=== PATIENT | male | born 1965 ===

== ENCOUNTER 2018-10-25 13:08 | Outpatient (CLI) | payer BC | END 2018-10-25 13:09 | disposition home or self-care (01) | LOC: C.RADH 13:08 ==

== ENCOUNTER 2018-11-04 05:41 | Inpatient (IN) | payer BC ==
[2018-11-01 11:25] VITALS: BMI 34.5
[2018-11-04] MEDS ORDERED: Midazolam 2 MG/2 ML VIAL ONE (07:04)
[2018-11-04] MEDS ORDERED: Propofol 10 mg/ml Inj (20 ML) ONE (07:04)
[2018-11-04] MEDS ORDERED: ceFAZolin 1 gm in NS 2 GM/200 ML BAG IVPB ONE (07:30)
[2018-11-04] MEDS ORDERED: metroNIDAZOLE IV 500 mg/100 ml 500 MG/100 ML BAG ONE (07:31)
[2018-11-04] MEDS ORDERED: Bupivacaine HCl 0.5% PF (10 ml) Inj ONE (07:32)
[2018-11-04] MEDS: Lidocaine/Epinephrine 1% 1:100000 10 ML IJ ONE ×2 (08:35→08:38)
[2018-11-04] MEDS: Bupivacaine 0.25% 20 ML INJ IJ ONE ×2 (08:35→08:38)
[2018-11-04] MEDS: Bupivacaine HCl 0.5% PF (10 ml) Inj ONE ×2 (08:54→12:36)
[2018-11-04] MEDS ORDERED: Rocuronium 10 mg/ml (5 ml) ONE (10:43)
[2018-11-04] MEDS ORDERED: BUPIVACAINE 0.125%/0.9% NACL 600 ML IJ ONE (12:00)
[2018-11-04] MEDS ORDERED: Neostigmine 1:1000 (1 mg/ml) Inj ONE (12:07)
[2018-11-04] MEDS ORDERED: Sodium Chloride 0.9% 20 ML IV ONE (12:29)
[2018-11-04] MEDS: Bupivacaine Liposomal Inj 20 ml INFIL ONE ×2 (12:37→12:45)
[2018-11-04] MEDS ORDERED: Morphine 4 MG/ML VIAL ONE (12:54)
[2018-11-04] MEDS ORDERED: HYDROmorphone 0.5 mg/0.5 ml ISec IVP PRN (13:17)
--- NOTE | 2018-11-04 13:19 | PCM.SURG1 ---
Surgeon's Initial Post Op Note - Surgeon's Notes Surgeon: Dr. Murrell Director Of Securities And Real Estate: Dr. Stone PGY3; Tania Gamez Type of Anesthesia: General Endo Pre-Operative Diagnosis: cecal adenocarcinoma Operative Findings: see dictation Post-Operative Diagnosis: same Operation Performed: robot-assisted laparoscopic right nilton-colectomy w/ extra- corporeal anastomsis Specimen/Specimens Removed: right colectomy, transverse colon, small bowel Estimated Blood Loss: EBL {In ML}: 100 Blood Products Given: N/A Drains Used: Syd Post-Op Condition: Good Date of Surgery/Procedure: 11/04/18 Time of Surgery/Procedure: 13:20
[2018-11-04] MEDS: Piperacillin/Tazobact 3.375 GM in Sodium Chloride 100 ML IVPB SCH ×2 (15:08→20:55)
[2018-11-04] MEDS: Lactated Ringer's 1,000 ML IV SCH (22:02)
[2018-11-04] MEDS: Morphine 4 MG/ML VIAL IVP PRN (22:10)
--- NOTE | 2018-11-04 23:31 | OP ---
PROCEDURE DATE: 11/04/2018 PREOPERATIVE DIAGNOSES: 1. Cecal adenocarcinoma. 2. Morbid obesity. POSTOPERATIVE DIAGNOSES: 1. Cecal adenocarcinoma. 2. Morbid obesity. PROCEDURES DONE: 1. Robotic right hemicolectomy. 2. Bilateral On-Q pain catheter pump placement. 3. Robotic small bowel resection, segmental. SURGEON: Celestino Murrell MD ASSISTANTS: CLAYTON Clemens and Thais Stone DO, PGY-3 resident. ANESTHESIA: General endotracheal tube anesthesia. ESTIMATED BLOOD LOSS: Around 100 mL. DRAIN: A 19-Burundian Syd drain was placed in perihepatic area. COMPLICATIONS: None. INTRAOPERATIVE FINDINGS: The patient had a large cecal mass with extensively thickened and fatty omentum. DESCRIPTION OF PROCEDURE: On intraoperative steps, this is a 53-year-old male who was diagnosed with cecal adenocarcinoma. The patient was consented for laparoscopic-assisted robotic right hemicolectomy. The patient was brought to the OR and placed supine on the operating room table. After induction of the anesthesia, the abdomen was prepped and draped in the usual sterile fashion. A left upper quadrant incision was made using the Visiport technique. Peritoneal cavity was entered. Pneumo was created. Another 3-8 mm port was placed in the midline, supraumbilical as well as left lower quadrant, and a 12-mm port was placed in left line. The robot was brought in. Camera arm as well as arm-1 and arm-2 were docked. First, the appendix, cecum and right colon was mobilized. The omentum was mobilized from the transverse colon. The ileum was firmly adhesed to the pelvis, and the ileal mobilization was done. Now, the ileum was resected at the terminal ileum, and the ileal mesentery as well as the ileocecal vessel was divided with vessel sealer. Dissection was continued upto the hepatic flexure. The transverse colon was divided at proximal transverse colon, and mesentery was divided with the vessel sealer. The dissection was carried down deep up to the root of the mesentery to remove all the lymph nodes. After that, the terminal ileum as well as the transverse colon was brought out through the supraumbilical small abdominal incision. The ileum appeared to be extremely narrowed in the length, and the part of the segment of the ileum was dissected. After that, the [id number] colon with a small bowel anastomosis was done. There was a proper hemostasis in each and every part of the procedure. There was a good blood supply. The blood supply was checked before anastomosis as well as after anastomosis. After proper anastomosis, suction irrigation of the whole abdomen was done. A 19-Burundian Syd drain was placed. Bilateral On-Q pain catheter pump was placed, and it was connected to the chamber. The abdominal wound was closed in multiple layers; the fascia with #1 loop PDS as well as 0 Prolene interrupted suture; the subcu with a 2-0 Vicryl and the skin with a 4-0 Monocryl at all the port sites, and dry sterile dressing was applied. The patient tolerated the procedure well. Count of instrument and gauge was correct. There was no apparent complication. The patient was extubated in OR and sent to the postanesthesia care unit in a stable condition. Celestino Murrell MD MTDD
[2018-11-05] MEDS: Piperacillin/Tazobact 3.375 GM in Sodium Chloride 100 ML IVPB SCH ×3 (01:08→13:44)
[2018-11-05] MEDS: Lactated Ringer's 1,000 ML IV SCH ×3 (01:08→06:27)
[2018-11-05] MEDS: Morphine 4 MG/ML VIAL IVP PRN ×2 (05:56→15:42)
[2018-11-05] MEDS ORDERED: Lactated Ringer's 500 ML IV ONE (06:09)
[2018-11-05 07:42] LABS: BASO % 0.3 % (0.0-2.0); EOS % 0.1 % (0.0-4.0); HEMOGLOBIN 9.5 g/dL (12.0-18.0); LYMPH # 1.5 K/uL (1.0-4.3); MEAN CELL VOLUME 74.3 fL (80.0-94.0); MEAN PLATELET VOLUME 7.6 fL (7.2-11.7); MONO # 1.2 K/uL (0.0-0.8); MONO % 9.8 % (0.0-10.0); NEUT # 9.9 K/uL (1.8-7.0); NEUT % 77.8 % (50.0-75.0); RBC 4.11 Mil/uL (4.40-5.90); RED CELL DISTRIBUTION WIDTH 16.7 % (11.5-14.5); WHITE BLOOD COUNT 12.7 K/uL (4.8-10.8)
[2018-11-05 07:45] LABS: BLOOD UREA NITROGEN 15 mg/dL (9-20); CALCIUM 8.3 mg/dl (8.6-10.4); GFR NON-AFRICAN AMERICAN > 60
--- NOTE | 2018-11-05 09:10 | CP.PCM.PN ---
<Tejal Funk - Last Filed: 11/05/18 09:13> Subjective - Date & Time of Evaluation Date of Evaluation: 11/05/18 Time of Evaluation: 07:00 - Subjective Subjective: GENERAL SURGERY PROGRESS NOTE FOR DR. STUART Patient seen and examined at bedside. He reports some milly-incisional pain but pain well controlled. Hasn't been OOB yet. Denies nausea or vomiting. He is using his IS. Had good urine output overnight so Foster was removed. No flatus or BM. Objective - Vital Signs/Intake and Output Vital Signs (last 24 hours): Temp Pulse Resp BP Pulse Ox 98.4 F 77 20 127/74 94 L 11/05/18 08:06 11/05/18 08:06 11/05/18 08:06 11/05/18 08:06 11/05/18 08:06 Intake and Output: 11/05/18 11/05/18 06:59 18:59 Intake Total 2125 Output Total 1700 Balance 425 - Medications Medications: Current Medications Acetaminophen (Tylenol 325mg Tab) 650 mg PO Q4 PRN PRN Reason: Pain, Mild (1-3) BUPIVACAINE 0.125%/0.9% NACL (Bupivacaine-Ns 0.125% On-Q Leak Hunter) 600 mls @ 4 mls/hr IJ ONCE ONE Stop: 11/10/18 17:59 Last Admin: 11/04/18 14:45 Dose: 16 mls Lactated Ringer's (Lactated Ringer's) 1,000 mls @ 125 mls/hr IV .Q8H SE[place]ST[facility]N Last Admin: 11/05/18 06:27 Dose: 125 mls/hr Piperacillin Sod/Tazobactam (Sod 3.375 gm/ Sodium Chloride) 100 mls @ 200 mls/hr IVPB Q6H SE[place]ST[place]N; Protocol Stop: 11/05/18 14:01 Last Admin: 11/05/18 01:08 Dose: 200 mls/hr Morphine Sulfate (Morphine) 4 mg IVP Q4H PRN PRN Reason: Pain, moderate (4-7) Last Admin: 11/05/18 05:56 Dose: 4 mg Ondansetron HCl (Zofran Inj) 4 mg IVP Q4 PRN PRN Reason: Nausea/Vomiting - Labs Labs: 11/05/18 07:08 11/05/18 07:08 - Constitutional Appears: Non-toxic, No Acute Distress - Head Exam Head Exam: ATRAUMATIC, NORMAL INSPECTION - Eye Exam Eye Exam: EOMI, Normal appearance - Respiratory Exam Respiratory Exam: NORMAL BREATHING PATTERN. absent: Respiratory Distress - Cardiovascular Exam Cardiovascular Exam: +S1, +S2 - GI/Abdominal Exam GI & Abdominal Exam: Soft, Tenderness (mild milly-incisional tenderness). absent: Distended, Firm, Guarding, Rigid, Rebound Additional comments: Dressings clean/dry/intact On-Q in place at 4cc/hr NG tube in place with 250cc output since OR Syd drain in place with 20cc serosanguinous output overnight - Neurological Exam Neurological Exam: Alert, Awake, Oriented x3 - Psychiatric Exam Psychiatric exam: Normal Affect, Normal Mood - Skin Skin Exam: Dry, Warm Assessment and Plan - Assessment and Plan (Free Text) Assessment: 53yo M with cecal adenocarcinoma s/p robotic right hemicolectomy POD#1 - Afebrile, VSS - Hgb 9.5 - Void check s/p Foster removal - Continue NPO - Will remove NG tube - Continue syd drain, will monitor output - Lovenox tomorrow - Strongly encouraged IS and ambulation - Discussed plan with Dr. Handy Funk PGY-4 <Celestino Stuart - Last Filed: 11/10/18 21:56> Objective - Vital Signs/Intake and Output Vital Signs (last 24 hours): Temp Pulse Resp BP Pulse Ox 98.1 F 84 20 150/75 96 11/08/18 15:00 11/08/18 15:00 11/08/18 15:00 11/08/18 15:00 11/08/18 15:00 - Labs Labs: 11/08/18 06:45 11/08/18 06:45 Attending/Attestation - Attestation I have personally seen and examined this patient.: Yes I have fully participated in the care of the patient.: Yes I have reviewed all pertinent clinical information, including history, physical exam and plan: Yes Notes (Text): Pt was seen and examined at bedside Agree with above note and assessment Pt has mild distention HB is 9.5 Keep NPO DC foster, DC NT tube SCDs, OOB to walk Hold lovenox due to low Hb Plan d.w pt in detail.
[2018-11-05] MEDS: Potassium Ch 20mEq in D5-1/2NS 1,000 ML IV SCH ×3 (10:54→21:24)
[2018-11-06] MEDS: Potassium Ch 20mEq in D5-1/2NS 1,000 ML IV SCH ×5 (05:04→22:07)
[2018-11-06 08:06] LABS: BASO % 0.2 % (0.0-2.0); HEMOGLOBIN 9.5 g/dL (12.0-18.0); LYMPH % 6.2 % (20.0-40.0); MEAN CELL VOLUME 73.6 fL (80.0-94.0); MEAN CORPUSCULAR HGB CONC 31.3 g/dL (33.0-37.0); MEAN PLATELET VOLUME 7.7 fL (7.2-11.7); MONO # 1.7 K/uL (0.0-0.8); MONO % 10.8 % (0.0-10.0); NEUT # 13.1 K/uL (1.8-7.0); NEUT % 82.8 % (50.0-75.0); NRBC % 0.1 % (0.0-2.0); PLATELET COUNT 372 K/uL (130-400); RBC 4.11 Mil/uL (4.40-5.90); RED CELL DISTRIBUTION WIDTH 16.6 % (11.5-14.5); WHITE BLOOD COUNT 15.9 K/uL (4.8-10.8)
[2018-11-06 08:12] LABS: BLOOD UREA NITROGEN 8 mg/dL (9-20); CALCIUM 8.5 mg/dl (8.6-10.4); GFR NON-AFRICAN AMERICAN > 60
[2018-11-06 10:08] LABS: ANISOCYTOSIS SLIGHT; EOSINOPHIL 1 % (0-4); HYPOCHROMIC SLIGHT; LYMPHOCYTE 6 % (20-40); MONOCYTE 7 % (0-10); NEUTROPHIL 86 % (50-75); PLATELET ESTIMATE NORMAL (NORMAL); POIKILOCYTOSIS SLIGHT; TOTAL CELLS COUNTED 100
[2018-11-06 10:09] LABS: LARGE PLATELETS PRESENT
[2018-11-06] MEDS ORDERED: Budesonide 0.25 mg/2 ml Inhal Susp UD INH ONE (16:15)
--- NOTE | 2018-11-06 16:15 | CP.PCM.PN ---
<BerthaThais - Last Filed: 11/06/18 16:12> Subjective - Date & Time of Evaluation Date of Evaluation: 11/06/18 Time of Evaluation: 10:30 - Subjective Subjective: General Surgery Dr. Murrell Pt seen and examined @bedside. No acute events overnight. pt has no complaints. reports pain well controlled. has been OOB to chair and ambulating hallways. NPO. (-)flatus/BM. Objective - Vital Signs/Intake and Output Vital Signs (last 24 hours): Temp Pulse Resp BP Pulse Ox 98.2 F 86 20 130/81 96 11/06/18 08:41 11/06/18 08:41 11/06/18 08:41 11/06/18 08:41 11/06/18 08:41 Intake and Output: 11/06/18 11/06/18 06:59 18:59 Intake Total 2000 Output Total 120 Balance 1880 - Medications Medications: Current Medications Acetaminophen (Tylenol 325mg Tab) 650 mg PO Q4 PRN PRN Reason: Pain, Mild (1-3) Budesonide (Pulmicort Respules) 0.25 mg INH RQ12 [place] Budesonide (Pulmicort Respules) 0.25 mg INH ONCE ONE Stop: 11/06/18 16:16 Last Admin: 11/06/18 16:06 Dose: 0.25 mg BUPIVACAINE 0.125%/0.9% NACL (Bupivacaine-Ns 0.125% On-Q Stem Cutter) 600 mls @ 4 mls/hr IJ ONCE ONE Stop: 11/10/18 17:59 Last Admin: 11/04/18 14:45 Dose: 16 mls Potassium Chloride/Dextrose/Sod Cl (Potassium Chl 20 Meq In D5-1/2ns) 1,000 mls @ 125 mls/hr IV .Q8H [place] Last Admin: 11/06/18 13:03 Dose: 125 mls/hr Piperacillin Sod/Tazobactam Sod (Zosyn 3.375 Gm Iv Premix) 3.375 gm in 50 mls @ 100 mls/hr IVPB Q6H [place]; Protocol Morphine Sulfate (Morphine) 4 mg IVP Q4H PRN PRN Reason: Pain, moderate (4-7) Last Admin: 11/05/18 15:42 Dose: 4 mg Ondansetron HCl (Zofran Inj) 4 mg IVP Q4 PRN PRN Reason: Nausea/Vomiting - Labs Labs: 11/06/18 07:49 11/06/18 07:49 - Constitutional Appears: Non-toxic, No Acute Distress - Head Exam Head Exam: NORMAL INSPECTION - Eye Exam Eye Exam: Normal appearance - ENT Exam ENT Exam: Mucous Membranes Moist - Respiratory Exam Respiratory Exam: NORMAL BREATHING PATTERN. absent: Accessory Muscle Use, Respiratory Distress - Cardiovascular Exam Cardiovascular Exam: REGULAR RHYTHM. absent: Bradycardia, Tachycardia - GI/Abdominal Exam GI & Abdominal Exam: Soft, Tenderness (appropriate TTP). absent: Distended, Firm, Guarding, Rigid Additional comments: dressing c/d/i panfilo in place; serosanguinous drainage - Extremities Exam Extremities Exam: Normal Inspection - Neurological Exam Neurological Exam: Alert, Awake, Oriented x3 - Psychiatric Exam Psychiatric exam: Normal Affect, Normal Mood - Skin Skin Exam: Dry, Intact, Normal Color, Warm Assessment and Plan - Assessment and Plan (Free Text) Assessment: 53 y/o m w/ cecal adenocarcinoma s/p POD#2 robotic right nilton-colectomy Plan: - continue NPO until flatus or BM - cont pain management - strict Is&Os - restart IV Abx 2/2 worsening WBC - replace electrolytes PRN - encourage OOb to chair/Amb/IS use - GI PPx - hold Lovenox until Hgb stable - cont SCDs while in bed Pt discussed w/ Dr. Handy Stone DO PGY3 <Celestino Murrell - Last Filed: 11/10/18 21:57> Objective - Vital Signs/Intake and Output Vital Signs (last 24 hours): Temp Pulse Resp BP Pulse Ox 98.1 F 84 20 150/75 96 11/08/18 15:00 11/08/18 15:00 11/08/18 15:00 11/08/18 15:00 11/08/18 15:00 - Labs Labs: 11/08/18 06:45 11/08/18 06:45 Attending/Attestation - Attestation I have personally seen and examined this patient.: Yes I have fully participated in the care of the patient.: Yes I have reviewed all pertinent clinical information, including history, physical exam and plan: Yes Notes (Text): Pt was seen and examined at bedside Agree with above note and assessment Pt is improving clinically OOB to walk Start lovenox today Hb is stable Clears liquid diet Plan d.w pt in detail.
[2018-11-06] MEDS: Piperacill/Tazo 3.375gm in Dex 3.375 GM/50 ML BAG IVPB SCH ×2 (16:34→22:08)
--- NOTE | 2018-11-06 17:57 | CP.PCM.CON ---
History of Present Illness - History of Present Illness History of Present Illness: Reason for consultation: Cough/wheezing 53-year-old male with history of asthma admitted for cecal adenocarcinoma s/p robotic right hemicolectomy. Postop patient developed cough productive of clear phlegm associated with wheezing and shortness of breath. Denies fever chills, denies chest pain Review of Systems - Review of Systems All systems: reviewed and no additional remarkable complaints except (Wheezing/cough) Past Patient History - Past Medical History & Family History Past Medical History?: Yes - Past Social History Smoking Status: Never Smoked - CARDIAC Hx Cardiac Disorders: Yes Hx Hypertension: Yes - PULMONARY Hx Respiratory Disorders: No - NEUROLOGICAL Hx Neurological Disorder: No - HEENT Hx HEENT Problems: No - RENAL Hx Chronic Kidney Disease: No - ENDOCRINE/METABOLIC Hx Endocrine Disorders: No - HEMATOLOGICAL/ONCOLOGICAL Hx Blood Disorders: Yes Hx Anemia: Yes Hx Cancer: Yes (COLON) - INTEGUMENTARY Hx Dermatological Problems: No - MUSCULOSKELETAL/RHEUMATOLOGICAL Hx Musculoskeletal Disorders: No Hx Falls: No - GASTROINTESTINAL Hx Gastrointestinal Disorders: Yes Hx Gastroesophageal Reflux: Yes Other/Comment: ADENOCARCINOMA COLON BLOOD IN STOOL - GENITOURINARY/GYNECOLOGICAL Hx Genitourinary Disorders: No - PSYCHIATRIC Hx Psychophysiologic Disorder: No Hx Substance Use: No - SURGICAL HISTORY Hx Surgeries: Yes - ANESTHESIA Hx Anesthesia: Yes Hx Anesthesia Reactions: No Hx Malignant Hyperthermia: No Has any member of the family had a problem w/ anesthesia?: No Meds Allergies/Adverse Reactions: Allergies Allergy/AdvReac Type Severity Reaction Status Date / Time No Known Allergies Allergy Verified 11/01/18 11:13 - Medications Medications: Current Medications Acetaminophen (Tylenol 325mg Tab) 650 mg PO Q4 PRN PRN Reason: Pain, Mild (1-3) Fluticasone/Vilanterol (Breo Ellipta 200-25 Mcg Inh) 1 puff INH RQD [place] BUPIVACAINE 0.125%/0.9% NACL (Bupivacaine-Ns 0.125% On-Q Knitted Garment Finisher) 600 mls @ 4 mls/hr IJ ONCE ONE Stop: 11/10/18 17:59 Last Admin: 11/04/18 14:45 Dose: 16 mls Potassium Chloride/Dextrose/Sod Cl (Potassium Chl 20 Meq In D5-1/2ns) 1,000 mls @ 125 mls/hr IV .Q8H [place] Last Admin: 11/06/18 13:03 Dose: 125 mls/hr Piperacillin Sod/Tazobactam Sod (Zosyn 3.375 Gm Iv Premix) 3.375 gm in 50 mls @ 100 mls/hr IVPB Q6H [place]; Protocol Last Admin: 11/06/18 16:34 Dose: 100 mls/hr BUPIVACAINE 0.125%/0.9% NACL (Bupivacaine-Ns 0.125% On-Q Knitted Garment Finisher) 600 mls @ 4 mls/hr IJ ONCE ONE Stop: 11/13/18 12:59 Morphine Sulfate (Morphine) 4 mg IVP Q4H PRN PRN Reason: Pain, moderate (4-7) Last Admin: 11/05/18 15:42 Dose: 4 mg Ondansetron HCl (Zofran Inj) 4 mg IVP Q4 PRN PRN Reason: Nausea/Vomiting Physical Exam - Head Exam Head Exam: ATRAUMATIC, NORMOCEPHALIC - ENT Exam ENT Exam: Mucous Membranes Moist - Neck Exam Neck exam: Positive for: Normal Inspection - Respiratory Exam Respiratory Exam: Rhonchi, Wheezes - Cardiovascular Exam Cardiovascular Exam: REGULAR RHYTHM - Extremities Exam Extremities exam: Positive for: normal inspection Results - Vital Signs Recent Vital Signs: Last Vital Signs Temp 98.8 F 11/06/18 15:39 Pulse 92 H 11/06/18 15:39 Resp 18 11/06/18 15:39 BP 121/79 11/06/18 15:39 Pulse Ox 96 11/06/18 15:39 - Labs Result Diagrams: 11/06/18 07:49 11/06/18 07:49 Labs: Laboratory Results - last 24 hr 11/06/18 11/06/18 07:49 07:49 WBC 15.9 H RBC 4.11 L Hgb 9.5 L Hct 30.3 L MCV 73.6 L MCH 23.0 L MCHC 31.3 L RDW 16.6 H Plt Count 372 MPV 7.7 Neut % (Auto) 82.8 H Lymph % (Auto) 6.2 L Bremer % (Auto) 10.8 H Eos % (Auto) 0.0 Baso % (Auto) 0.2 Neut # (Auto) 13.1 H Lymph # (Auto) 1.0 Bremer # (Auto) 1.7 H Eos # (Auto) 0.0 Baso # (Auto) 0.0 Neutrophils % (Manual) 86 H Lymphocytes % (Manual) 6 L Monocytes % (Manual) 7 Eosinophils % (Manual) 1 Platelet Estimate Normal Large Platelets Present Hypochromasia (manual) Slight Poikilocytosis (manual Slight Anisocytosis (manual) Slight Sodium 134 Potassium 3.9 Chloride 100 Carbon Dioxide 28 Anion Gap 10 BUN 8 L Creatinine 0.7 L Est GFR ( Amer) > 60 Est GFR (Non-Af Amer) > 60 Random Glucose 137 H D Calcium 8.5 L Assessment & Plan (1) Asthma Status: Acute Comment: Start Brio Ellipta. Nebulizer treatment. cecal adenocarcinoma s/p robotic right hemicolectomy, continue surgical management
[2018-11-06] MEDS: Albuterol 0.083% Inhal Sol (2.5 mg/3 mL) UD INH SCH (19:29)
[2018-11-06] MEDS ORDERED: Budesonide 0.25 mg/2 ml Inhal Susp UD INH SCH (20:00)
[2018-11-07 01:17] VITALS: RESP 20
[2018-11-07] MEDS: Albuterol 0.083% Inhal Sol (2.5 mg/3 mL) UD INH SCH ×4 (01:19→19:57)
[2018-11-07] MEDS: Piperacill/Tazo 3.375gm in Dex 3.375 GM/50 ML BAG IVPB SCH (03:44)
[2018-11-07] MEDS: Potassium Ch 20mEq in D5-1/2NS 1,000 ML IV SCH ×2 (03:45→23:14)
[2018-11-07] MEDS ORDERED: BUPIVACAINE 0.125%/0.9% NACL 600 ML IJ ONE (07:00)
[2018-11-07 07:06] LABS: BASO % 0.2 % (0.0-2.0); EOS # 0.1 K/uL (0.0-0.7); EOS % 0.5 % (0.0-4.0); LYMPH # 1.3 K/uL (1.0-4.3); LYMPH % 6.7 % (20.0-40.0); MEAN CELL VOLUME 73.9 fL (80.0-94.0); MEAN CORPUSCULAR HEMOGLOBIN 22.6 pg (27.0-31.0); MEAN CORPUSCULAR HGB CONC 30.6 g/dL (33.0-37.0); MEAN PLATELET VOLUME 7.6 fL (7.2-11.7); MONO # 1.5 K/uL (0.0-0.8); NEUT # 15.8 K/uL (1.8-7.0); NEUT % 84.6 % (50.0-75.0); PLATELET COUNT 421 K/uL (130-400); RBC 4.45 Mil/uL (4.40-5.90); RED CELL DISTRIBUTION WIDTH 16.8 % (11.5-14.5); WHITE BLOOD COUNT 18.6 K/uL (4.8-10.8)
[2018-11-07 07:32] LABS: BLOOD UREA NITROGEN 9 mg/dL (9-20); CALCIUM 8.7 mg/dl (8.6-10.4); GFR NON-AFRICAN AMERICAN > 60
[2018-11-07 08:21] LABS: LYMPHOCYTE 7 % (20-40); MONOCYTE 9 % (0-10); NEUTROPHIL 84 % (50-75); TOTAL CELLS COUNTED 100
[2018-11-07 08:23] LABS: ANISOCYTOSIS SLIGHT; HYPOCHROMIC SLIGHT; MICROCYTOSIS SLIGHT; PLATELET ESTIMATE SLIGHTLY INCREASED (NORMAL); POLYCHROMIC SLIGHT
[2018-11-07 08:24] LABS: TARGET CELLS SLIGHT; TEARDROP CELLS SLIGHT
[2018-11-07] MEDS ORDERED: Potassium Phosphate 15 MMOLE in Sodium Chloride 0.9% 250 ML IVPB ONE (09:00)
--- NOTE | 2018-11-07 09:00 | CP.PCM.PN ---
<Felicity Mckeon P - Last Filed: 11/07/18 09:07> Subjective - Date & Time of Evaluation Date of Evaluation: 11/07/18 Time of Evaluation: 07:10 - Subjective Subjective: Progress note for Dr. Murrell. Patient was seen and examined at bedside. No acute events overnight. Patient has no complaints. He reports pain well controlled but states that morphine gives him hot flashes so he has not been asking for it. Patient reports ambulating the hallways. He reports eating jello last night and said that he tolerated it well. Denies nausea, vomiting, fever, and chills. Reports no gas or bowel movements yet but has been belching. Objective - Vital Signs/Intake and Output Vital Signs (last 24 hours): Temp Pulse Resp BP Pulse Ox 98.8 F 84 20 122/77 97 11/07/18 08:44 11/07/18 08:44 11/07/18 08:44 11/07/18 08:44 11/07/18 08:44 Intake and Output: 11/07/18 11/07/18 06:59 18:59 Intake Total 2645 Output Total 930 Balance 1715 - Medications Medications: Current Medications Acetaminophen (Tylenol 325mg Tab) 650 mg PO Q4 PRN PRN Reason: Pain, Mild (1-3) Last Admin: 11/07/18 00:17 Dose: 650 mg Albuterol Sulfate (Albuterol 0.083% Inhal Isabelle (2.5 Mg/3 Ml) Ud) 2.5 mg INH RQ6 [place] Last Admin: 11/07/18 07:26 Dose: 2.5 mg Fluticasone/Vilanterol (Breo Ellipta 200-25 Mcg Inh) 1 puff INH RQD [place] BUPIVACAINE 0.125%/0.9% NACL (Bupivacaine-Ns 0.125% On-Q Oil Process [place]) 600 mls @ 4 mls/hr IJ ONCE ONE Stop: 11/10/18 17:59 Last Admin: 11/04/18 14:45 Dose: 16 mls Potassium Chloride/Dextrose/Sod Cl (Potassium Chl 20 Meq In D5-1/2ns) 1,000 mls @ 125 mls/hr IV .Q8H [place] Last Admin: 11/07/18 03:45 Dose: 125 mls/hr Piperacillin Sod/Tazobactam Sod (Zosyn 3.375 Gm Iv Premix) 3.375 gm in 50 mls @ 100 mls/hr IVPB Q6H [facility]; Protocol Last Admin: 11/07/18 03:44 Dose: 100 mls/hr BUPIVACAINE 0.125%/0.9% NACL (Bupivacaine-Ns 0.125% On-Q Oil Process [place]) 600 mls @ 4 mls/hr IJ ONCE ONE Stop: 11/13/18 12:59 Potassium Phosphate 15 mmole/ (Sodium Chloride) 255 mls @ 42.5 mls/hr IVPB ONCE ONE Stop: 11/07/18 14:59 Ondansetron HCl (Zofran Inj) 4 mg IVP Q4 PRN PRN Reason: Nausea/Vomiting - Labs Labs: 11/07/18 06:56 11/07/18 06:56 - Constitutional Appears: Non-toxic, No Acute Distress - Head Exam Head Exam: ATRAUMATIC, NORMAL INSPECTION, NORMOCEPHALIC - Eye Exam Eye Exam: EOMI, Normal appearance - ENT Exam ENT Exam: Mucous Membranes Moist, Normal Exam - Neck Exam Neck Exam: Full ROM, Normal Inspection - Respiratory Exam Respiratory Exam: NORMAL BREATHING PATTERN - Cardiovascular Exam Cardiovascular Exam: REGULAR RHYTHM, +S1, +S2. absent: Bradycardia, Tachycardia - GI/Abdominal Exam GI & Abdominal Exam: Distended, Soft, Tenderness (to palpation surrounding incision), Hypoactive Bowel Sounds, Normal Bowel Sounds. absent: Guarding Additional comments: dressing c/d/i Syd drain 80 cc serosanguineous fluid - Extremities Exam Extremities Exam: Normal Inspection - Neurological Exam Neurological Exam: Alert, Awake, Oriented x3 - Psychiatric Exam Psychiatric exam: Normal Affect, Normal Mood - Skin Skin Exam: Dry, Intact, Normal Color, Warm Assessment and Plan - Assessment and Plan (Free Text) Assessment: 53 y/o male w/ cecal adenocarcinoma s/p POD#2 robotic right nilton-colectomy. Plan: - Monitor for flatus and BM - Clear liquid diet - Repeat chest Xray for worsening congestion - D/c morphine, continue additional pain management - D/c Zosyn, begin Ceftriaxone IV Abx 2/2 uptrending leukocytosis - Strict Is&Os - Replace electrolytes PRN - Encourage out of bed to chair/Amb/IS use - Continue to hold Lovenox - Continue SCDs while in bed discussed w/ Dr. Murrell Felicity Mckeon, PGY-1 <Celestino Murrell - Last Filed: 11/10/18 21:58> Objective - Vital Signs/Intake and Output Vital Signs (last 24 hours): Temp Pulse Resp BP Pulse Ox 98.1 F 84 20 150/75 96 11/08/18 15:00 11/08/18 15:00 11/08/18 15:00 11/08/18 15:00 11/08/18 15:00 - Labs Labs: 11/08/18 06:45 11/08/18 06:45 Attending/Attestation - Attestation I have personally seen and examined this patient.: Yes I have fully participated in the care of the patient.: Yes I have reviewed all pertinent clinical information, including history, physical exam and plan: Yes Notes (Text): Pt was seen and examined at bedside Agree with above note and assessment Pt is stable Mildly distended OOB ID consult for WBC trending up Plan d.w pt in detail.
[2018-11-07] MEDS ORDERED: guaiFENesin DM 200 mg-20 mg/10 ml UD PO PRN (09:11)
[2018-11-07] MEDS ORDERED: cefTRIAXone 2 GM in Sodium Chloride 0.9% 100 ML IVPB SCH (10:00)
--- NOTE | 2018-11-07 11:49 | RAD ---
HISTORY: congestion, cough COMPARISON: Chest x-ray performed 10/25/18 TECHNIQUE: Chest, one view. FINDINGS: LUNGS: No focal consolidation. Please note that chest x-ray has limited sensitivity for the detection of pulmonary masses. PLEURA: No significant pleural effusion identified. No definite pneumothorax . CARDIOVASCULAR: Cardiomegaly. Ectatic aorta. Prominence of the mediastinum may be related to uncoiled aorta and patient obliquity however alternatives including adenopathy not excluded. OSSEOUS STRUCTURES: Degenerative changes. VISUALIZED UPPER ABDOMEN: Unremarkable. OTHER FINDINGS: None. IMPRESSION: Cardiomegaly. Ectatic aorta. Prominence of the mediastinum may be related to uncoiled aorta and patient obliquity however alternatives including adenopathy not excluded.
[2018-11-07] MEDS: Fluticasone-Vilanterol 200/25mcg Diskus INH SCH (13:12)
--- NOTE | 2018-11-07 19:53 | CP.PCM.CON ---
History of Present Illness - History of Present Illness History of Present Illness: 53-year-old male admitted for cecal adenocarcinoma s/p robotic right hemicolectomy. Postop patient developed cough productive of clear phlegm associated with wheezing and shortness of breath. Denies fever chills, denies chest pain On IV Rocephin WBC rising Review of Systems - Review of Systems All systems: reviewed and no additional remarkable complaints except Past Patient History - Past Medical History & Family History Past Medical History?: Yes - Past Social History Smoking Status: Never Smoked - CARDIAC Hx Cardiac Disorders: Yes Hx Hypertension: Yes - PULMONARY Hx Respiratory Disorders: No - NEUROLOGICAL Hx Neurological Disorder: No - HEENT Hx HEENT Problems: No - RENAL Hx Chronic Kidney Disease: No - ENDOCRINE/METABOLIC Hx Endocrine Disorders: No - HEMATOLOGICAL/ONCOLOGICAL Hx Blood Disorders: Yes Hx Anemia: Yes Hx Cancer: Yes (COLON) - INTEGUMENTARY Hx Dermatological Problems: No - MUSCULOSKELETAL/RHEUMATOLOGICAL Hx Musculoskeletal Disorders: No Hx Falls: No - GASTROINTESTINAL Hx Gastrointestinal Disorders: Yes Hx Gastroesophageal Reflux: Yes Other/Comment: ADENOCARCINOMA COLON BLOOD IN STOOL - GENITOURINARY/GYNECOLOGICAL Hx Genitourinary Disorders: No - PSYCHIATRIC Hx Psychophysiologic Disorder: No Hx Substance Use: No - SURGICAL HISTORY Hx Surgeries: Yes - ANESTHESIA Hx Anesthesia: Yes Hx Anesthesia Reactions: No Hx Malignant Hyperthermia: No Has any member of the family had a problem w/ anesthesia?: No Meds Allergies/Adverse Reactions: Allergies Allergy/AdvReac Type Severity Reaction Status Date / Time No Known Allergies Allergy Verified 11/01/18 11:13 - Medications Medications: Current Medications Acetaminophen (Tylenol 325mg Tab) 650 mg PO Q4 PRN PRN Reason: Pain, Mild (1-3) Last Admin: 11/07/18 00:17 Dose: 650 mg Albuterol Sulfate (Albuterol 0.083% Inhal Isabelle (2.5 Mg/3 Ml) Ud) 2.5 mg INH RQ6 SEBASTIÁN Last Admin: 11/07/18 13:11 Dose: 2.5 mg Fluticasone/Vilanterol (Breo Ellipta 200-25 Mcg Inh) 1 puff INH RQD SEBASTIÁN Last Admin: 11/07/18 13:12 Dose: Not Given Guaifenesin/Dextromethorphan (Robitussin Dm) 10 ml PO Q4H PRN PRN Reason: Cough and congestion BUPIVACAINE 0.125%/0.9% NACL (Bupivacaine-Ns 0.125% On-Q Superintendent Overhead Distribution) 600 mls @ 4 mls/hr IJ ONCE ONE Stop: 11/10/18 17:59 Last Admin: 11/04/18 14:45 Dose: 16 mls Potassium Chloride/Dextrose/Sod Cl (Potassium Chl 20 Meq In D5-1/2ns) 1,000 mls @ 125 mls/hr IV .Q8H SEBASTIÁN Last Admin: 11/07/18 03:45 Dose: 125 mls/hr BUPIVACAINE 0.125%/0.9% NACL (Bupivacaine-Ns 0.125% On-Q Superintendent Overhead Distribution) 600 mls @ 4 mls/hr IJ ONCE ONE Stop: 11/13/18 12:59 Ceftriaxone Sodium 2 gm/ (Sodium Chloride) 100 mls @ 100 mls/hr IVPB Q24H REPLACED BY [facility]; Protocol Last Admin: 11/07/18 11:21 Dose: 100 mls/hr Ondansetron HCl (Zofran Inj) 4 mg IVP Q4 PRN PRN Reason: Nausea/Vomiting Physical Exam - Constitutional Appears: No Acute Distress, Chronically Ill - Head Exam Head Exam: ATRAUMATIC, NORMOCEPHALIC - Eye Exam Eye Exam: absent: Scleral icterus - ENT Exam ENT Exam: Mucous Membranes Dry - Neck Exam Neck exam: Negative for: Lymphadenopathy - Respiratory Exam Respiratory Exam: Decreased Breath Sounds - Cardiovascular Exam Cardiovascular Exam: REGULAR RHYTHM - GI/Abdominal Exam GI & Abdominal Exam: Diminished Bowel Sounds, Soft, Tenderness. absent: Guarding, Rebound, Rigid - Rectal Exam Rectal Exam: Deferred - Exam Exam: NORMAL INSPECTION - Extremities Exam Extremities exam: Negative for: pedal edema - Back Exam Back exam: absent: CVA tenderness (L), CVA tenderness (R) - Neurological Exam Neurological exam: Alert, CN II-XII Intact, Oriented x3, Reflexes Normal - Psychiatric Exam Psychiatric exam: Depressed - Skin Skin Exam: Dry, Intact Results - Vital Signs Recent Vital Signs: Last Vital Signs Temp 97.9 F 11/07/18 15:00 Pulse 90 11/07/18 15:00 Resp 20 11/07/18 15:00 BP 134/84 11/07/18 15:00 Pulse Ox 96 11/07/18 15:00 - Labs Result Diagrams: 11/07/18 06:56 11/07/18 06:56 Labs: Laboratory Results - last 24 hr 11/07/18 11/07/18 06:56 06:56 WBC 18.6 H RBC 4.45 Hgb 10.0 L Hct 32.9 L MCV 73.9 L MCH 22.6 L MCHC 30.6 L RDW 16.8 H Plt Count 421 H MPV 7.6 Neut % (Auto) 84.6 H Lymph % (Auto) 6.7 L [place] % (Auto) 8.0 Eos % (Auto) 0.5 Baso % (Auto) 0.2 Neut # (Auto) 15.8 H Lymph # (Auto) 1.3 [place] # (Auto) 1.5 H Eos # (Auto) 0.1 Baso # (Auto) 0.0 Neutrophils % (Manual) 84 H Lymphocytes % (Manual) 7 L Monocytes % (Manual) 9 Platelet Estimate Slightly increased H Polychromasia Slight Hypochromasia (manual) Slight Anisocytosis (manual) Slight Microcytosis (manual) Slight Target Cells Slight Tear Drop Cells Slight Sodium 135 Potassium 3.8 Chloride 100 Carbon Dioxide 27 Anion Gap 13 BUN 9 Creatinine 0.8 Est GFR ( Amer) > 60 Est GFR (Non-Af Amer) > 60 Random Glucose 153 H Calcium 8.7 Phosphorus 2.5 Magnesium 2.0 Assessment & Plan (1) Leukocytosis (leucocytosis) Status: Acute (2) Adenocarcinoma, colon Status: Acute (3) Asthma Status: Acute (4) H/O hemicolectomy Status: Acute - Assessment and Plan (Free Text) Assessment: will adjust IV rx empirically review CXR discuss with Dr Hawkins
[2018-11-07] MEDS ORDERED: Meropenem 1 GM in Sodium Chloride 0.9% 100 ML IVPB SCH (20:00)
[2018-11-07] MEDS: Meropenem 1 GM in Sodium Chloride 0.9% 100 ML IVPB SCH (23:13)
[2018-11-08] MEDS: Albuterol 0.083% Inhal Sol (2.5 mg/3 mL) UD INH SCH ×3 (01:27→14:35)
[2018-11-08] MEDS: Meropenem 1 GM in Sodium Chloride 0.9% 100 ML IVPB SCH ×2 (06:11→15:07)
[2018-11-08 06:48] LABS: SQUAMOUS EPITHIAL < 1 /hpf (0-5); URINE BILIRUBIN NEGATIVE (NEGATIVE); URINE BLOOD NEGATIVE (NEGATIVE); URINE CLARITY Hazy (Clear); URINE COLOR Amber (YELLOW); URINE GLUCOSE (UA) NORMAL (Normal); URINE HYALINE CAST 0-2 /lpf (0-2); URINE LEUKOCYTE ESTERASE NEG Leu/uL (Negative); URINE PROTEIN 1+ mg/dL (NEGATIVE); URINE UROBILINOGEN NORMAL mg/dL (0.2-1.0)
[2018-11-08 07:51] LABS: BLOOD UREA NITROGEN 15 mg/dL (9-20); CALCIUM 8.6 mg/dl (8.6-10.4); GFR NON-AFRICAN AMERICAN > 60
[2018-11-08 07:56] LABS: BASO # 0.1 K/uL (0.0-0.2); BASO % 0.4 % (0.0-2.0); EOS # 0.4 K/uL (0.0-0.7); EOS % 2.4 % (0.0-4.0); HEMOGLOBIN 9.5 g/dL (12.0-18.0); LYMPH # 1.6 K/uL (1.0-4.3); LYMPH % 10.4 % (20.0-40.0); MEAN CELL VOLUME 74.5 fL (80.0-94.0); MEAN CORPUSCULAR HEMOGLOBIN 23.1 pg (27.0-31.0); MEAN PLATELET VOLUME 8.1 fL (7.2-11.7); MONO # 1.4 K/uL (0.0-0.8); NEUT # 11.9 K/uL (1.8-7.0); NEUT % 77.8 % (50.0-75.0); RBC 4.12 Mil/uL (4.40-5.90); RED CELL DISTRIBUTION WIDTH 17.3 % (11.5-14.5); WHITE BLOOD COUNT 15.3 K/uL (4.8-10.8)
[2018-11-08] MEDS: Fluticasone-Vilanterol 200/25mcg Diskus INH SCH (08:52)
--- NOTE | 2018-11-08 10:33 | CP.PCM.DIS ---
Provider - Provider Date of Admission: 11/04/18 13:12 Attending physician: Celestino Murrell MD Consults: 11/06/18 16:58 Pulmonology Consult Routine Comment: Consulting Provider: Eb Hawkins Consulting Physician: Eb Hawkins Reason for Consult: productive coughing 11/07/18 14:39 Infectious Disease Consult Routine Comment: Consulting Provider: Bradley Mesa Consulting Physician: Bradley Mesa Reason for Consult: leukocytosis s/p right nilton-colectomy Time Spent in preparation of Discharge (in minutes): 30 Hospital Course - Lab Results Lab Results: Most Recent Lab Values WBC 15.3 K/uL (4.8-10.8) H 11/08/18 06:45 RBC 4.12 Mil/uL (4.40-5.90) L 11/08/18 06:45 Hgb 9.5 g/dL (12.0-18.0) L 11/08/18 06:45 Hct 30.7 % (35.0-51.0) L 11/08/18 06:45 MCV 74.5 fL (80.0-94.0) L 11/08/18 06:45 MCH 23.1 pg (27.0-31.0) L 11/08/18 06:45 MCHC 31.0 g/dL (33.0-37.0) L 11/08/18 06:45 RDW 17.3 % (11.5-14.5) H 11/08/18 06:45 Plt Count 406 K/uL (130-400) H 11/08/18 06:45 MPV 8.1 fL (7.2-11.7) 11/08/18 06:45 Neut % (Auto) 77.8 % (50.0-75.0) H 11/08/18 06:45 Lymph % (Auto) 10.4 % (20.0-40.0) L 11/08/18 06:45 [place] % (Auto) 9.0 % (0.0-10.0) 11/08/18 06:45 Eos % (Auto) 2.4 % (0.0-4.0) 11/08/18 06:45 Baso % (Auto) 0.4 % (0.0-2.0) 11/08/18 06:45 Neut # (Auto) 11.9 K/uL (1.8-7.0) H 11/08/18 06:45 Lymph # (Auto) 1.6 K/uL (1.0-4.3) 11/08/18 06:45 [place] # (Auto) 1.4 K/uL (0.0-0.8) H 11/08/18 06:45 Eos # (Auto) 0.4 K/uL (0.0-0.7) 11/08/18 06:45 Baso # (Auto) 0.1 K/uL (0.0-0.2) 11/08/18 06:45 Neutrophils % (Manual) 84 % (50-75) H 11/07/18 06:56 Lymphocytes % (Manual) 7 % (20-40) L 11/07/18 06:56 Monocytes % (Manual) 9 % (0-10) 11/07/18 06:56 Eosinophils % (Manual) 1 % (0-4) 11/06/18 07:49 Platelet Estimate Slightly increased (NORMAL) H 11/07/18 06:56 Large Platelets Present 11/06/18 07:49 Polychromasia Slight 11/07/18 06:56 Hypochromasia (manual) Slight 11/07/18 06:56 Poikilocytosis (manual Slight 11/06/18 07:49 Anisocytosis (manual) Slight 11/07/18 06:56 Microcytosis (manual) Slight 11/07/18 06:56 Target Cells Slight 11/07/18 06:56 Tear Drop Cells Slight 11/07/18 06:56 Sodium 135 mmol/L (132-148) 11/08/18 06:45 Potassium 4.0 mmol/L (3.6-5.2) 11/08/18 06:45 Chloride 101 mmol/L (98-107) 11/08/18 06:45 Carbon Dioxide 26 mmol/L (22-30) 11/08/18 06:45 Anion Gap 12 (10-20) 11/08/18 06:45 BUN 15 mg/dL (9-20) 11/08/18 06:45 Creatinine 0.8 mg/dL (0.8-1.5) 11/08/18 06:45 Est GFR ( Amer) > 60 11/08/18 06:45 Est GFR (Non-Af Amer) > 60 11/08/18 06:45 Random Glucose 109 mg/dL (75-110) D 11/08/18 06:45 Calcium 8.6 mg/dl (8.6-10.4) 11/08/18 06:45 Phosphorus 4.2 mg/dL (2.5-4.5) 11/08/18 06:45 Magnesium 2.1 mg/dL (1.6-2.3) 11/08/18 06:45 Procalcitonin 0.25 NG/ML (0.19-0.49) 11/08/18 06:45 Urine Color Rhona (YELLOW) 11/08/18 06:09 Urine Clarity Hazy (Clear) 11/08/18 06:09 Urine pH 5.0 (5.0-8.0) 11/08/18 06:09 Ur Specific [place] 1.023 (1.003-1.030) 11/08/18 06:09 Urine Protein 1+ mg/dL (NEGATIVE) H 11/08/18 06:09 Urine Glucose (UA) Normal mg/dL (Normal) 11/08/18 06:09 Urine Ketones Negative mg/dL (NEGATIVE) 11/08/18 06:09 Urine Blood Negative (NEGATIVE) 11/08/18 06:09 Urine Nitrate Negative (NEGATIVE) 11/08/18 06:09 Urine Bilirubin Negative (NEGATIVE) 11/08/18 06:09 Urine Urobilinogen Normal mg/dL (0.2-1.0) 11/08/18 06:09 Ur Leukocyte Esterase Neg Favi[place]/uL (Negative) 11/08/18 06:09 Urine WBC (Auto) 4 /hpf (0-5) 11/08/18 06:09 Urine RBC (Auto) < 1 /hpf (0-3) 11/08/18 06:09 Ur Squamous Epith Cells < 1 /hpf (0-5) 11/08/18 06:09 Hyaline Casts 0-2 /lpf (0-2) 11/08/18 06:09 Blood Type A POSITIVE 11/04/18 07:40 Antibody Screen Negative 11/04/18 07:40 - Hospital Course Hospital Course: 53 y/o M w/ PMHx of HTN, COPD, GERD presented to [facility] on for scheduled robotic right hemicolectomy for cecal adenocarcinoma. Pt tolerated the procedure well with minimal to moderate bleeding. Pt was admitted post-operatively for observation, pain management and monitoring of bowel function. Pt had drain and NGT placed intra-operatively 2/2 bleeding. NGT was removed POD#1 and pt started on CLD. POD#3 pt had BM and flatus, and diet advanced to FLD. Pain has been well controlled w/ OnQ and tylenol PRN. Post-operative course complicated by leukocytosis, for which pt started on IV Abx w/ ID and Pulmonary consult. Pt seen and examined @bedside. No acute events overnight. pt has no complaints this AM. pain well controlled. denies F/C, N/V. tolerating FLD. (+)BM/Flatus. oob, ambulating hallways w/o issue. Discharge Exam - Head Exam Head Exam: ATRAUMATIC, NORMOCEPHALIC - Eye Exam Eye Exam: Normal appearance - ENT Exam ENT Exam: Mucous Membranes Moist - Respiratory Exam Respiratory Exam: NORMAL BREATHING PATTERN. absent: Accessory Muscle Use, Respiratory Distress - Cardiovascular Exam Cardiovascular Exam: REGULAR RHYTHM. absent: Bradycardia, Tachycardia - GI/Abdominal Exam GI & Abdominal Exam: Soft, Tenderness (appropriate milly-incisional TTP). absent: Distended, Firm, Guarding, Rebound, Rigid Additional comments: panfilo drain w/ serous drainage (removed) onQ pump in place (removed) abd dressings c/d/i - Extremities Exam Extremities exam: normal inspection - Neurological Exam Neurological exam: Alert, Oriented x3 - Psychiatric Exam Psychiatric exam: Normal Affect, Normal Mood - Skin Skin Exam: Dry, Intact, Normal Color, Warm Discharge Plan - Discharge Medications Prescriptions: Cephalexin [cephalexin] 500 mg PO TID 5 Days #15 cap - Follow Up Plan Condition: GOOD Disposition: HOME/ ROUTINE Patient education suggested?: Yes Instructions: Colon and Rectal Cancer, Colectomy, Laparoscopic Surgery, Surgical Wound (DC), Pureed Diet, Soft Diet Additional Instructions: Please take all medication as prescribed Continue Full liquid/pureed diet for 2weeks After 2 weeks, advance diet as tolerated follow up w/ PMD in 7-10 days follow up w/ Dr. Murrell in office in 7-10 days Pt may remove outer dressings tomorrow leave steri-strips in place, they will fall off on their own Pt may shower on 11/12, until then, sponge bath Do not soak incisions, no pools, tubs, baths No heavy lifting (nothing greater then 10lbs) for 6weeks please call Dr. Murrell and return to the ED if fever >100.5, pain, redness, drainage, from incisions, and/or rupture of sutures Referrals: Celestino Murrell MD [Staff Provider] - Eb Hawkins MD [Staff Provider] -
--- NOTE | 2018-11-08 12:23 | CP.PCM.PN ---
Subjective - Date & Time of Evaluation Date of Evaluation: 11/08/18 Time of Evaluation: 10:00 - Subjective Subjective: Patient seen and examined at bedside Patient is doing well with no acute events Clinically improved Afebrile Denies SOB, CP, nausea, vomiting, fever, chills Physical Exam: Gen: AAOx3, anxious Cardio: RRR, no murmur Pulm: clear to auscultation bilaterally Ab: soft non distended A/P Asthma -continue brio ellipta -continue nebulizer -chest xray 11/07/18: cardiomegaly, ectatic aorta, prominence of the mediastinum may be related to uncoiled aorta and patient obliquity however alternatives including adenopath not excluded Objective - Vital Signs/Intake and Output Vital Signs (last 24 hours): Temp Pulse Resp BP Pulse Ox 99.2 F 77 20 143/84 98 11/08/18 07:00 11/08/18 07:00 11/08/18 07:00 11/08/18 07:00 11/08/18 07:00 Intake and Output: 11/08/18 11/08/18 06:59 18:59 Intake Total 800 Output Total 500 Balance 300 - Medications Medications: Current Medications Acetaminophen (Tylenol 325mg Tab) 650 mg PO Q4 PRN PRN Reason: Pain, Mild (1-3) Last Admin: 11/07/18 00:17 Dose: 650 mg Albuterol Sulfate (Albuterol 0.083% Inhal Isabelle (2.5 Mg/3 Ml) Ud) 2.5 mg INH RQ6 SEBASTIÁN Last Admin: 11/08/18 10:15 Dose: 2.5 mg Fluticasone/Vilanterol (Breo Ellipta 200-25 Mcg Inh) 1 puff INH RQD SEBASTIÁN Last Admin: 11/08/18 08:52 Dose: Not Given Guaifenesin/Dextromethorphan (Robitussin Dm) 10 ml PO Q4H PRN PRN Reason: Cough and congestion BUPIVACAINE 0.125%/0.9% NACL (Bupivacaine-Ns 0.125% On-Q Engineering Test Mechanic) 600 mls @ 4 mls/hr IJ ONCE ONE Stop: 11/10/18 17:59 Last Admin: 11/04/18 14:45 Dose: 16 mls BUPIVACAINE 0.125%/0.9% NACL (Bupivacaine-Ns 0.125% On-Q Engineering Test Mechanic) 600 mls @ 4 mls/hr IJ ONCE ONE Stop: 11/13/18 12:59 Meropenem 1 gm/ Sodium (Chloride) 100 mls @ 100 mls/hr IVPB Q8H SEBASTIÁN; Protocol Last Admin: 11/08/18 06:11 Dose: 100 mls/hr Ondansetron HCl (Zofran Inj) 4 mg IVP Q4 PRN PRN Reason: Nausea/Vomiting - Labs Labs: 11/08/18 06:45 11/08/18 06:45 Assessment and Plan (1) Asthma Status: Acute
[2018-11-08 16:08] VITALS: BP 150/75; PULSE 84; TEMP 98.1; O2SAT 96
--- NOTE | 2018-11-08 17:18 | CP.PCM.PN ---
Subjective - Date & Time of Evaluation Date of Evaluation: 11/08/18 Time of Evaluation: 09:00 - Subjective Subjective: improving Objective - Vital Signs/Intake and Output Vital Signs (last 24 hours): Temp Pulse Resp BP Pulse Ox 98.1 F 84 20 150/75 96 11/08/18 15:00 11/08/18 15:00 11/08/18 15:00 11/08/18 15:00 11/08/18 15:00 Intake and Output: 11/08/18 11/08/18 06:59 18:59 Intake Total 800 500 Output Total 500 50 Balance 300 450 - Medications Medications: Current Medications Acetaminophen (Tylenol 325mg Tab) 650 mg PO Q4 PRN PRN Reason: Pain, Mild (1-3) Last Admin: 11/07/18 00:17 Dose: 650 mg Albuterol Sulfate (Albuterol 0.083% Inhal Isabelle (2.5 Mg/3 Ml) Ud) 2.5 mg INH RQ6 SEBASTIÁN Last Admin: 11/08/18 14:35 Dose: 2.5 mg Fluticasone/Vilanterol (Breo Ellipta 200-25 Mcg Inh) 1 puff INH RQD SEBASTIÁN Last Admin: 11/08/18 08:52 Dose: Not Given Guaifenesin/Dextromethorphan (Robitussin Dm) 10 ml PO Q4H PRN PRN Reason: Cough and congestion BUPIVACAINE 0.125%/0.9% NACL (Bupivacaine-Ns 0.125% On-Q Government Sales Manager) 600 mls @ 4 mls/hr IJ ONCE ONE Stop: 11/10/18 17:59 Last Admin: 11/04/18 14:45 Dose: 16 mls BUPIVACAINE 0.125%/0.9% NACL (Bupivacaine-Ns 0.125% On-Q Government Sales Manager) 600 mls @ 4 mls/hr IJ ONCE ONE Stop: 11/13/18 12:59 Meropenem 1 gm/ Sodium (Chloride) 100 mls @ 100 mls/hr IVPB Q8H SEBASTIÁN; Protocol Last Admin: 11/08/18 15:07 Dose: 100 mls/hr Ondansetron HCl (Zofran Inj) 4 mg IVP Q4 PRN PRN Reason: Nausea/Vomiting - Labs Labs: 11/08/18 06:45 11/08/18 06:45 Assessment and Plan (1) Leukocytosis (leucocytosis) Status: Acute (2) Adenocarcinoma, colon Status: Acute (3) Asthma Status: Acute (4) H/O hemicolectomy Status: Acute
== END 2018-11-08 17:42 | disposition home or self-care (01) | DRG 330 ==
LOC: C.SDS 05:41 → C.9S 13:12 → C.6T 17:01
PROVIDERS: ADMIT Surgery Surgical Critical Care; ATTEND Surgery Surgical Critical Care
PROC: 0DBB4ZZ Excision of Ileum, Percutaneous Endoscopic Approach (ICD-10-PCS; 2018-11-04)
PROC: 0JH83VZ Insertion of Infusion Pump into Abdomen Subcutaneous Tissue and Fascia, Percutaneous Approach (ICD-10-PCS; 2018-11-04)
PROC: 0W9F30Z Drainage of Abdominal Wall with Drainage Device, Percutaneous Approach (ICD-10-PCS; 2018-11-04)
PROC: 0DTF4ZZ Resection of Right Large Intestine, Percutaneous Endoscopic Approach (ICD-10-PCS; principal; 2018-11-04 07:45)
DX: C18.0 Malignant neoplasm of cecum (principal); K91.840 Postprocedural hemorrhage of a digestive system organ or structure following a digestive system procedure; D72.828 Other elevated white blood cell count; F43.8 Other reactions to severe stress; R06.02 Shortness of breath; K21.9 Gastro-esophageal reflux disease without esophagitis; J45.909 Unspecified asthma, uncomplicated; I51.7 Cardiomegaly; I77.819 Aortic ectasia, unspecified site; Y83.6 Removal of other organ (partial) (total) as the cause of abnormal reaction of the patient, or of later complication, without mention of misadventure at the time of the procedure

== ENCOUNTER 2018-11-25 09:47 | Day surgery (SDC) | payer BC | END 2018-11-25 11:44 | disposition home or self-care (01) | LOC: C.SDS 09:47 | DX: C18.9 Malignant neoplasm of colon, unspecified (principal) ==

== ENCOUNTER 2018-12-02 10:01 | Day surgery (SDC) | payer BC ==
[2018-12-02 10:24] VITALS: BMI 32.5
[2018-12-02] MEDS ORDERED: Bupivacaine 0.25% 20 ML INJ IJ ONE (13:10)
[2018-12-02] MEDS ORDERED: ceFAZolin 1 gm in NS 1 GM/100 ML BAG IVPB ONE (13:10)
[2018-12-02] MEDS ORDERED: Lidocaine/Epinephrine 1% 1:100000 10 ML IJ ONE (13:10)
[2018-12-02] MEDS ORDERED: HEPARIN-NS 5,000 UNITS/500 ML 5,000 UNIT/500 ML BAG IV ONE (13:11)
[2018-12-02] MEDS ORDERED: Midazolam 2 MG/2 ML VIAL ONE (13:22)
[2018-12-02] MEDS ORDERED: Propofol 10 mg/ml Inj (20 ML) ONE (13:22)
[2018-12-02] MEDS ORDERED: HYDROmorphone 0.5 mg/0.5 ml ISec IVP PRN (15:20)
--- NOTE | 2018-12-02 15:21 | PCM.SURG1 ---
Surgeon's Initial Post Op Note - Surgeon's Notes Surgeon: MD Handy Resistance Brazer: Azul PGY3 Pre-Operative Diagnosis: Colon ca Operative Findings: Right IJ vein Post-Operative Diagnosis: Colon Ca Operation Performed: Right IJ portacath placement Specimen/Specimens Removed: none Estimated Blood Loss: EBL {In ML}: 5 Date of Surgery/Procedure: 12/02/18 Time of Surgery/Procedure: 14:30
--- NOTE | 2018-12-02 15:37 | RAD ---
Date of service: 12/02/2018 PROCEDURE: Intraoperative Fluoroscopy. HISTORY: Colon cancer FINDINGS: Fluoroscopic assistance was provided for right Port-A-Cath placement. Please refer to the operative report from MARK Stephenson.
--- NOTE | 2018-12-02 16:14 | RAD ---
Date of service: 12/02/2018 HISTORY: s/p portacath COMPARISON: 11/07/2018 FINDINGS: LUNGS: No active pulmonary disease. PLEURA: No significant pleural effusion identified, no pneumothorax apparent. CARDIOVASCULAR: No aortic atherosclerotic calcification present. Normal cardiac size. Right internal jugular central venous Port-A-Cath. OSSEOUS STRUCTURES: No significant abnormalities. VISUALIZED UPPER ABDOMEN: Normal. OTHER FINDINGS: None. IMPRESSION: Right Port-A-Cath. Otherwise unremarkable.
[2018-12-02 16:57] VITALS: RESP 18; O2SAT 96
[2018-12-02 16:58] VITALS: BP 104/74; PULSE 90; TEMP 97.7
--- NOTE | 2018-12-04 20:07 | OP ---
PROCEDURE DATE: 12/02/2018 PREOPERATIVE DIAGNOSIS: Colon cancer, status post colon resection. POSTOPERATIVE DIAGNOSIS: Colon cancer, status post colon resection. PROCEDURES DONE: 1. Right internal jugular Port-A-Cath insertion. 2. Ultrasound-guided venous access. 3. Intraoperative fluoroscopy. SURGEON: Celestino Murrell MD TELEMETRY TECH: Colt Liang, PGY-3 resident. TYPE OF ANESTHESIA: General endotracheal tube anesthesia. ESTIMATED BLOOD LOSS: Around 10 mL. DRAINS: None. PATHOLOGY: None. COMPLICATIONS: None. INTRAOPERATIVE FINDINGS: The patient had patent right IJ. DESCRIPTION OF PROCEDURE: On intraoperative steps, this is a 53-year-old male, who was diagnosed with colon cancer with positive lymph node status post colon resection and the patient needed chemotherapy, and the patient was consented for the Port-A-Cath insertion, brought to the OR, placed supine on the operating table. After induction of the anesthesia, both side of the chest as well as the neck was prepped and draped in the usual sterile fashion. Under ultrasound guidance, right IJ venous access was done. Guidewire was placed. Intraoperative fluoroscopy was done. The wire placement was confirmed and now the right infraclavicular incision was made, pouch was created, and catheter was tunneled from the pouch up to the right IJ insertion site and the catheter site was dilated and the catheter was placed into the dilator sheath and another intraoperative fluoroscopy confirmation was done for the proper placement of the catheter tip and the catheter was connected to the port. Port was secured to the floor of the pouch and intraoperative Port-A-Cath access was done and the Port-A-Cath was functioning without any blockage and a double lumen port was placed and after that the wound was closed at right IJ insertion site with a 4-0 Monocryl and at the port site with 3-0 Vicryl and 4-0 Monocryl and dry sterile dressing was applied. The straight heparin was injected into the port to prevent the clotting of the port and after that the patient was reversed from anesthesia and sent to the postanesthesia care unit in stable condition. There was no apparent complication. The postoperative chest x-ray was ordered. Celestino Murrell MD
== END 2018-12-02 16:59 | disposition home or self-care (01) ==
LOC: C.SDS 10:01
PROVIDERS: ATTEND Surgery Surgical Critical Care
DX: Z45.2 Encounter for adjustment and management of vascular access device (principal); C18.9 Malignant neoplasm of colon, unspecified
CPT/HCPCS: 36561; 71045; 77001; C1788; J0690; J1170; J2250; J2704; J3010; J7040